=== PATIENT | male | born 1980 | race Caucasian/White ===

== ENCOUNTER 2018-11-07 14:22 | Emergency (ER) | payer OTHER ==
[~2018-11-07] VITALS: Ht 172.7 cm; Wt 86.2 kg
--- NOTE | 2018-11-07 14:53 | Diagnostic Imaging Report ---
INDICATION: Pain and swelling status post injury COMPARISON: None. FINDINGS: 3 views of the right ankle were obtained. There is subtle irregular lucency involving the distal fibula. Findings could be on the basis of nondisplaced hairline fracture. No displaced fracture fragments are seen. No other acute osseous abnormalities are seen. Joint spaces are maintained. Soft tissue swelling, greatest laterally. No expectorated radiopaque foreign bodies are seen. IMPRESSION: 1. Findings suspicious for subtle hairline fracture of the distal fibula Dictated by: Dictated on workstation # [id number]
--- NOTE | 2018-11-07 15:04 | ED Lower Extremity ---
General Chief Complaint: Lower Extremity Stated Complaint: RT LEG INJ Nursing Triage Note: Pt arrived by private vehicle with chief complaint of right foot/ankle injury. Pt was alert, orienteed and ambulatory at arrival. Pt stated this occurred on Tuesday when he was helping with a sick horse and it flipped on his right foot/ankle. Severe swelling to outside right foot. Pt stated hurts when standing on foot. Pain is about 3-5 currently, but was a 12 the other day, pt stated. Nursing Sepsis Screen: No Definite Risk History of Present Illness Date Seen by Provider: Nov 07, 2018 Time Seen by Provider: 14:50 Initial Comments The patient is a pleasant 38-year-old male who presents for evaluation of right lateral ankle pain. He states that on Tuesday a horse rolled over his ankle causing an injury. He states that he has been wrapping it and trying to ambulate since that time. He says that he has significant pain when he is weightbearing. He has no other complaints. He is alert and oriented 4, calm, and appears to be in no distress. Onset: other (2 days ago) Severity: moderate Pain/Injury Location: right ankle Method of Injury: unknown Modifying Factors: Improves With Immobilization (makes it better), Improves With Movement (makes it worse) Allergies and Home Medications Allergies Coded Allergies: gabapentin (Verified Allergy, Unknown, anaphylactic, 11/07/18) hives, swelling, pt stated almost killed him Patient Home Medication List Home Medication List Reviewed: Yes Review of Systems Constitutional: no symptoms reported EENTM: no symptoms reported Respiratory: no symptoms reported Cardiovascular: no symptoms reported Gastrointestinal: no symptoms reported Genitourinary: no symptoms reported Musculoskeletal: joint pain (right ankle injury, swelling, bruising) Skin: no symptoms reported Psychiatric/Neurological: No Symptoms Reported All Other Systems Reviewed Negative Unless Noted: Yes Past Gdaqqtb-Svjeib-Dkqygq Hx Past Med/Social Hx: Reviewed Nursing Past Med/Soc Hx Patient Social History Alcohol Use: Occasionally Uses Recreational Drug Use: No Smoking Status: Current Everyday Smoker Type Used: Smokeless Tobacco 2nd Hand Smoke Exposure: Yes Recent Foreign Travel: No Contact w/Someone Who Travel: No Recent Infectious Disease Expo: No Recent Hopitalizations: No Physical Abuse: No Sexual Abuse: No Mistreated: No Fear: No Seasonal Allergies Seasonal Allergies: No Past Medical History Surgeries: Yes (Shoulder brian) Respiratory: No Cardiac: No Neurological: Yes (brain hemorrhage) Genitourinary: No Gastrointestinal: No Musculoskeletal: No Endocrine: No HEENT: No Cancer: No Psychosocial: No Blood Disorders: No Physical Exam Vital Signs Vital Signs - First Documented 11/07/18 14:29 Temp 97.8 Pulse 91 Resp 16 B/P (MAP) 154/92 (112) Pulse Ox 98 O2 Delivery Room Air Capillary Refill : Less Than 3 Seconds Height, Weight, BMI Height: 5'8.00" Weight: 190lbs. 0oz. [id number]; BMI Method:Stated General Appearance: WD/WN, no apparent distress Cardiovascular: regular rate, rhythm, no edema Respiratory: lungs clear, normal breath sounds, no respiratory distress Ankles: left ankle non-tender, left ankle normal inspection, left ankle normal range of motion; right ankle bone tenderness, right ankle ecchymosis, right ankle soft tissue tenderness, right ankle swelling Neurologic/Psychiatric: no motor/sensory deficits, alert, normal mood/affect, oriented x 3 Skin: warm/dry, ecchymosis (right lateral ankle) Progress/Results/Core Measures Results/Orders My Orders Orders - LIAM BARNES DO Ankle 3 View Right (11/07/18 14:35) Ice: Apply To Affected Area (11/07/18 14:35) Ortho Glass (11/07/18 15:35) Crutches (11/07/18 15:35) Vital Signs/I&O 11/07/18 14:29 Temp 97.8 Pulse 91 Resp 16 B/P (MAP) 154/92 (112) Pulse Ox 98 O2 Delivery Room Air Blood Pressure Mean: 112 Progress Progress Note : Progress Note @1540 - patient updated on x-ray findings which are suspicious for a hairline fracture of the distal right fibula. This was explained to the patient. He states that he drove 8 hours yesterday and that he absolutely refuses to have a Ortho-Glass splint applied or to use crutches. He is willing to use an air splint. He declines any pain medications as well. He is stable for discharge at this time. Diagnostic Imaging Diagonstic Imaging: Xray Comments [facility] [place], [place] NAME: CHEMA BLAIR MED REC#: [id number] PT STATUS: REG ER : 1980 PHYSICIAN: LIAM BARNES DO ADMIT DATE: 11/07/18/ER FS Draft Date of Exam:11/07/18 ANKLE 3 VIEW RIGHT INDICATION: Pain and swelling status post injury COMPARISON: None. FINDINGS: 3 views of the right ankle were obtained. There is subtle irregular lucency involving the distal fibula. Findings could be on the basis of nondisplaced hairline fracture. No displaced fracture fragments are seen. No other acute osseous abnormalities are seen. Joint spaces are maintained. Soft tissue swelling, greatest laterally. No expectorated radiopaque foreign bodies are seen. IMPRESSION: 1. Findings suspicious for subtle hairline fracture of the distal fibula Dictated on workstation # [id number] Dict: 11/07/18 1449 Trans: 11/07/18 1453 [facility] [id number] Interpreted by: YOAN OAKLEY MD Electronically signed by: Departure Impression Primary Impression: Fracture of distal end of left fibula Disposition: 01 HOME, SELF-CARE Condition: Stable Departure-Patient Inst. Decision time for Depature: 15:40 Referrals: NO,LOCAL PHYSICIAN (PCP/Family) Primary Care Physician Patient Instructions: Ankle Fracture (DC) Add. Discharge Instructions: Use the Aircast provided. Follow-up with your doctor for repeat imaging within the next 1-2 weeks. Return to the ER immediately for new or worsening symptoms. Take ibuprofen or Tylenol at home for pain relief as needed. LIAM BARNES DO Nov 07, 2018 15:04
--- NOTE | 2018-11-07 15:50 | NUR ---
Pt refused orthoglass and crutches. Pt did not want the airstirrup applied or hermann-wrap. I gave it to the patient to take home in case he needed it.
[2018-11-07 15:51] VITALS: BP 150/91
== END 2018-11-07 15:51 | disposition home or self-care (01) ==
LOC: ER FS 14:24
DX: S82.832A Other fracture of upper and lower end of left fibula, initial encounter for closed fracture (principal); S90.02XA Contusion of left ankle, initial encounter; F17.200 Nicotine dependence, unspecified, uncomplicated; Z88.8 Allergy status to other drugs, medicaments and biological substances; W55.89XA Other contact with other mammals, initial encounter
CPT/HCPCS: 73610